=== PATIENT | male | born 1955 | race Caucasian/White ===

== ENCOUNTER 2017-01-02 23:45 | Inpatient (IN) | payer BC ==
--- NOTE | ~2017-01-02 | HP ---
History And Physical [place] [address] [place]. [address] NAME: MOSES RAMOS : 51 STATUS : ADM IN PAT#: [id number] AGE: 61 ADM/REG DATE : 01/03/17 MR#: [id number] REPORT SERV DATE: 01/03/17 DICTATED BY: IKE LEVIN DATE: 01/03/17 REPORT STATUS : Draft TRANSCRIBED BY: MODL DATE: 01/03/17 DATE OF ADMISSION: 01/03/2017 CHIEF COMPLAINT: A 61-year-old male with chronic atrial fibrillation and systolic congestive heart failure now presenting with symptomatic bradycardia. HISTORY OF PRESENTING ILLNESS: The patient's history was obtained through careful interview with the patient and girlfriend coupled with review of [facility] medical records. The patient was apparently asymptomatic and with no particular complaints. When during dinner on the night of admission, he states "I just didn't feel right." He felt lightheaded and developed some intermittent-pressure like discomfort in his chest diffusely about 6/10 to 7/10 severity, associated with mild shortness of breath. He never passed out or became unstable because of his lightheadedness, but at home he had a monitor and checked his pulse and it was in the 30s. He has a chronic nonproductive cough and "tickle in my throat". No fevers or chills. No nausea or vomiting. REVIEW OF SYSTEMS: Otherwise 14-point review of systems was obtained and was negative. PAST MEDICAL HISTORY: 1. Atrial fibrillation status post cardioversion. 2. COPD, placed on chronic nasal cannula oxygen but has never been a smoker. 3. Obstructive sleep apnea, on CPAP. 4. Hypertension. 5. Diabetes, under good control. 6. Systolic congestive heart failure, ejection fraction 45%. PAST SURGICAL HISTORY: 1. Left knee surgery. 2. Nasal surgery. ALLERGIES: NO KNOWN DRUG ALLERGIES. SOCIAL HISTORY: Never been a smoker. Drinks occasional alcohol. He lives with his girlfriend. He has two children. Quit marijuana. Used to work for [employer]. Lives in [place], [place]. FAMILY HISTORY: Sister with COPD. A strong family history of congestive heart failure and coronary artery disease. CURRENT MEDICATIONS: Include Eliquis 5 mg p.o. b.i.d., eye drops, aspirin 81 mg daily, [facility] History And Physical [place] [address] [facility] [place]. [address] NAME: MOSES RAMOS : 51 STATUS : ADM IN PAT#: [id number] AGE: 61 ADM/REG DATE : 01/03/17 MR#: [id number] REPORT SERV DATE: 01/03/17 DICTATED BY: IKE LEVIN DATE: 01/03/17 REPORT STATUS : Draft TRANSCRIBED BY: MODL DATE: 01/03/17 p.r.n., diltiazem extended release 120 mg daily, Tri-Cor 145 mg daily, flecainide 100 mg p.o. b.i.d., Lopid 600 mg p.o. b.i.d., lisinopril/hydrochlorothiazide 10/12.5 p.o. daily, losartan/hydrochlorothiazide 100/12.5 p.o. daily, loratadine 10 mg p.o. daily, metformin 500 mg p.o. b.i.d., metoprolol 100 mg p.o. b.i.d., Singulair 10 mg daily, Prilosec, Ultram 50 mg p.o. q.8 hours p.r.n. topical cream. PHYSICAL EXAMINATION: VITAL SIGNS: Temperature 97.0, pulse 30, blood pressure 118/57, respiratory rate 16, O2 saturation 98% on 2 L nasal cannula. GENERAL: A pleasant, cooperative male. He does not appear in distress at this time. HEENT: Pupils equal, round, and reactive to light. No conjunctival pallor. No scleral icterus. Nares are patent. Oropharynx is clear of obstruction. Moist mucous membranes. NECK: Trachea midline. No thyromegaly. LYMPH: No cervical lymphadenopathy. No supraclavicular lymphadenopathy. RESPIRATORY: Clear to auscultation at bases. No wheezes, rales, or rhonchi. Normal effort. CARDIOVASCULAR: Bradycardic regular. No murmurs, rubs, or gallops. No current extremity edema is appreciated. ABDOMEN: Soft, nontender, nondistended. Normal bowel sounds auscultated throughout. No hepatosplenomegaly. DERMATOLOGICAL: Warm and dry extremities. No pallor. No cyanosis. PSYCHIATRIC: Normal affect. Good mood. Alert and oriented x3. LABORATORY DATA: TSH elevated to 6.510. INR 1.5. White blood cell count 7.0, hemoglobin 11, hematocrit 33, platelets 305. Sodium 136, potassium 5.5, chloride 101, bicarb 25, BUN 30, creatinine 1.80 from baseline creatinine of 1.0, and glucose of 158. STUDIES: 1. Chest x-ray by my own evaluation shows no acute pulmonary process, but the patient does have cardiomegaly. 2. EKG by my own evaluation shows a junctional rhythm with bradycardia in the 30s. When I looks in the monitor, there does seem to be a clear P wave with first-degree AV block only, no second or third-degree block changes and bradycardic. ASSESSMENT AND PLAN: 1. Symptomatic bradycardia. Pulse in the 30s. Hold diltiazem. Hold beta timur. Hold flecainide. Obtain as [facility] Cardiology Consult. Admit to the [facility]. 2. Acute kidney injury. Hold multiple medications with hydrochlorothiazide in them and monitor closely. Place on IV fluids. 3. Abnormal TSH. Question of adding Synthroid. We will check full thyroid panel for now. 4. Severe obstructive sleep apnea, on CPAP. 5. Atrial fibrillation, on Eliquis. 6. Anemia. Check studies. History And Physical [address] [address] NAME: MOSES RAMOS : 51 STATUS : ADM IN [facility]#: [id number] AGE: 61 ADM/REG DATE : 01/03/17 MR#: [id number] REPORT SERV DATE: 01/03/17 DICTATED BY: IKE LEVIN DATE: 01/03/17 REPORT STATUS : Draft TRANSCRIBED BY: CHRISTOPHE DATE: 01/03/17 MIKEL/CHRISTOPHE Ike Levin M.D. / [id number] CC: MD Joss Kilpatrick M.D. Carlos Baleeiro, M.D. [facility] Cardiology
--- NOTE | ~2017-01-02 | DS ---
Discharge Summary [facility] [address] [place]. [address] NAME: MOSES RAMOS : 51 STATUS : DIS IN PAT#: [id number] AGE: 61 ADM/REG DATE : 01/03/17 MR#: [id number] REPORT SERV DATE: 01/05/17 DICTATED BY: DAVID HYDE II DATE: 01/05/17 REPORT STATUS : Draft TRANSCRIBED BY: MODL DATE: 01/05/17 ADMISSION DATE: 01/03/2017 DISCHARGE DATE: 01/05/2017 DISCHARGE DIAGNOSES: 1. Medication-induced bradycardia. 2. Acute on chronic systolic congestive heart failure. 3. Chronic atrial fibrillation. 4. Acute kidney injury. 5. Hypertension. 6. Diabetes mellitus, type 2. 7. Morbid obesity. CONSULTS: Wu Reid M.D. with Cardiology. BRIEF HISTORY OF PRESENT ILLNESS: The patient is a 61-year-old male with the above history who presented to [facility] due to symptomatic bradycardia. For detailed history and physical examination, please see Dr. Venkata Prince's note from 01/03/2017. HOSPITAL COURSE: After admission, the patient was observed in the IMCU. All of his blood pressure medicines were held. His creatinine was 1.8 on admission possibly due to him taking both Hyzaar and Prinzide as well as hypotension. He had an elevated BNP of 856, but did not have significant amount of clinical CHF. His creatinine subsequently trended down and currently 1.12. Cardiology evaluated him and Dr. 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 He has a history of typical atrial flutter and atrial fibrillation, which required cardioversion in the past. He had severe sleep apnea and his bradycardia was likely induced by being on flecainide, metoprolol, and Cardizem. Dr. Reid thought as he had a recurrence of his atrial fibrillation, he could consider radiofrequency ablation or a pacemaker in the future. Currently, the patient's insurance has not been accepted widely, but case management has found two cardiologists in his area, so the patient will be arranging followup with one of those sewing department supervisor. Otherwise, he is followed by Dr. Beyer and will need to see him in the next one to two weeks. Currently, he is doing well. His heart rate is actually up in the 80s to 90s, so we will restart his Cardizem, but continued to hold his beta-timur and flecainide per Cardiology. His blood pressure is doing well in the 120 systolic, and he is actually in the normal sinus rhythm at this current time. DISCHARGE MEDICATIONS: 1. Eliquis 5 mg p.o. b.i.d. 2. Aspirin 81 mg p.o. daily. 3. TriCor 145 mg p.o. daily. 4. Lopid 600 mg p.o. b.i.d. 5. Singulair 10 mg p.o. daily. 6. Tramadol 50 mg p.o. q.8 hours p.r.n. 7. Hyzaar 100/12.5 mg p.o. daily. 8. Cartia XT 120 mg p.o. daily. Discharge Summary [address] [address] NAME: MOSES RAMOS : 51 STATUS : DIS IN PAT#: [id number] AGE: 61 ADM/REG DATE : 01/03/17 MR#: [id number] REPORT SERV DATE: 01/05/17 DICTATED BY: DAVID HYDE II DATE: 01/05/17 REPORT STATUS : Draft TRANSCRIBED BY: CHRISTOPHE DATE: 01/05/17 9. Metformin 500 mg p.o. b.i.d. 10.Tums p.r.n. 11.Prilosec 20 mg p.o. daily p.r.n. 12.Claritin p.r.n. 13.Artificial tears p.r.n. 14.Triamcinolone p.r.n. DISCHARGE INSTRUCTIONS: The patient will follow up with Dr. Beyer in one to two weeks. Otherwise, he has been given information for local sewing department supervisor to get established with. RICARDA/CHRISTOPHE David Hyde II, MD / [id number] CC: MD Joss García II, M.D.
--- NOTE | ~2017-01-02 | CN ---
Consultation Report [facility] [address] [place]. [address] NAME: MOSES RAMOS : 51 STATUS : ADM IN [facility]#: [id number] AGE: 61 ADM/REG DATE : 01/03/17 MR#: [id number] REPORT SERV DATE: 01/03/17 DICTATED BY: ARNIE HERNANDEZ DATE: 01/03/17 REPORT STATUS : Draft TRANSCRIBED BY: MODL DATE: 01/03/17 CARDIOLOGY CONSULTATION DATE OF CONSULTATION: 01/03/2017 REASON FOR CONSULTATION: Regarding symptomatic bradycardia. HISTORY OF PRESENT ILLNESS: Mr. Ramos is a 61-year-old gentleman with known history of atrial dysrhythmias that has included atrial fibrillation and atypical atrial flutter. He has severe sleep apnea. He presented to the hospital with complaints of weakness, fatigue, and some chest discomfort. He was found to be in sinus bradycardia with heart rates in the 40s. There were no prolonged pauses or more severe bradycardia noted. The patient takes calcium channel blockers, beta blockers, and flecainide for his atrial dysrhythmia. These were all held. His laboratory values were notable for a creatinine of 1.8 where his baseline creatinine is 1.0, electrolytes were all within normal limits. His heart rates were coming up into the 50s this morning, he is feeling better. His chest pain has resolved. PAST MEDICAL HISTORY: Notable for: 1. COPD. 2. Severe sleep apnea. 3. History of atrial dysrhythmias that included atrial fibrillation and atypical atrial flutter, status post cardioversion. The patient receives flecainide as well as beta blockers and calcium channel blockers. 4. Hypertension. 5. Diabetes. 6. Systolic heart failure, ejection fraction 45%. PAST SURGICAL HISTORY: Left knee surgery. FAMILY HISTORY: Negative for premature coronary artery disease. SOCIAL HISTORY: Has never been a smoker. Occasional alcohol. REVIEW OF SYSTEMS: As noted above. All other systems reviewed and negative. PHYSICAL EXAMINATION: VITAL SIGNS: Blood pressure of 120/70, pulse of 52, respirations 16. GENERAL: Well developed, well nourished. HEENT: No icterus. Good dentition. NECK: Supple. No masses or thyromegaly LUNGS: Breathing comfortably. No rales or wheezes. COR: Normal S1, S2. No S3 or S4. No murmurs, clicks, rubs. No JVD Consultation Report [facility] [address] [place]. [address] NAME: MOSES RAMOS : 51 STATUS : ADM IN PAT#: [id number] AGE: 61 ADM/REG DATE : 01/03/17 MR#: [id number] REPORT SERV DATE: 01/03/17 DICTATED BY: ARNIE HERNANDEZ DATE: 01/03/17 REPORT STATUS : Draft TRANSCRIBED BY: MODL DATE: 01/03/17 ABD: Soft, nondistended, nontender, no hepatosplenomegaly. EXT: No clubbing, cyanosis or edema. Peripheral pulses 2+/=bilaterally. SKIN: Warm and dry. No visible lesions. MS: Chest wall without deformity, no obvious clavicular fractures. NEURO/PSYCH: Oriented X3. No anxiety or depression. DIAGNOSTIC STUDIES: EKG on admission: Sinus bradycardia, heart rate of 40 beats per minute. Normal intervals. No evidence for ischemia, infarction, or chamber hypertrophy. IMPRESSION: A gentleman with, what appears to be, level of tachy-pamella syndrome. He has had a history of a typical atrial flutter and atrial fibrillation that has required cardioversion in the past. He has severe sleep apnea. Currently, he is taking flecainide, beta blockers, calcium channel blockers, and takes Eliquis for CVA prophylaxis. I would recommend holding all of these medications for now. If he has recurrence of atrial fibrillation, could consider radiofrequency ablation as a potential treatment option because of his underlying bradycardia. Could consider pacemaker to allow for use of other antiarrhythmic agents. We will hold his Eliquis for now until decision is made as far as any other procedures including pacemaker. JAZZY/CHRISTOPHE Arnie Hernandez M.D. / [id number]
[~2017-01-02 23:45] MED LIST: BACTRONASA NAS; C5 PO; CARD120 PO; ELIQUIS 5 MG TAB5 MG PO; FLECAINIDE100 MG PO; GLUCPH PO; HALF81 PO; HYZAAR1 TAB PO; PRILO PO; SYMBICORT 160/41 INH INH; TOPXL50 PO; TRICOR145 PO
[2017-01-03 00:59] LABS: BASOPHILS 0.9 %; BASOPHILS ABSOLUTE 0.06 10/3/uL (0.0-0.16); EOSINOPHILS ABSOLUTE 0.35 10/3/uL (0.0-0.53); ER CBC TAT 0 Hrs 07 Mins; HEMOGLOBIN 10.7 g/dL (13.6-17.8); IMMATURE GRANULOCYTES 0.6 %; IMMATURE GRANULOCYTES ABSOLUTE 0.04 10/3/uL (0.0-0.11); LYMPHOCYTES 22.6 %; LYMPHOCYTES ABSOLUTE 1.59 10/3/uL (0.67-4.30); MEAN CORPUSCULAR HEMOGLOB 27.7 pg (26.0-34.0); MEAN CORPUSCULAR VOLUME 86.5 fL (80-100); MEAN PLATELET VOLUME 8.8 fL (9.2-13.0); MONOCYTES 9.7 %; MONOCYTES ABSOLUTE 0.68 10/3/uL (0.21-1.20); NEUTROPHILS 61.2 %; NEUTROPHILS ABSOLUTE 4.31 10/3/uL (2.02-8.40); PLATELET COUNT 305 10/3/uL (150-400); RBC DISTRIBUTION WIDTH 18.1 % (12.0-16.0)
[2017-01-03 01:00] LABS: HEMATOCRIT 33.4 % (40.0-51.0); MANUAL DIFF NO %; RED CELL COUNT 3.86 10/6/uL (4.7-6.1)
[2017-01-03 01:07] LABS: INTERNATIONAL NORMAL RATI 1.5 UNITS (-); PROTIME (NOT ORD) 17.7 SEC (12.0-14.5)
[2017-01-03 01:08] LABS: PARTIAL THROMBO TIME 50.6 SEC (22.5-37.2)
[2017-01-03 01:26] LABS: CALCIUM, SERUM 8.8 MG/DL (8.5-10.4); CHLORIDE, SERUM 101 MMOL/L (96-112); POTASSIUM, SERUM 5.5 MMOL/L (3.5-5.3); SODIUM, SERUM 136 MMOL/L (135-148); TROPONIN I <0.02 NG/ML (<0.05)
[2017-01-03 01:27] LABS: BUN (BLOOD UREA NITROGEN) 30 MG/DL (6-23); CHEST PAIN PROFILE TAT 0 Hrs 34 Mins; CO2 (CARBON DIOXIDE) 25 MMOL/L (24-34); GFR AFRICAN AMERICAN 45 ML/MIN (>=60); GFR NON AFRICAN AMERICAN 39 ML/MIN (>=60); GLUCOSE, SERUM 158 MG/DL (60-99)
[2017-01-03] MEDS ORDERED: SINGULAIR1 PO (02:11)
[2017-01-03] MEDS ORDERED: LOPID6 PO (02:11)
[2017-01-03] MEDS ORDERED: FLECAINIDE100 MG PO (02:12)
[2017-01-03] MEDS ORDERED: HYZAAR1 TAB PO (02:12)
[2017-01-03] MEDS ORDERED: ULTRAM50 PO (02:12)
[2017-01-03] MEDS ORDERED: PRINZIDE1 TAB PO (02:13)
[2017-01-03] MEDS ORDERED: ELIQUIS 5 MG TAB5 MG PO (02:13)
[2017-01-03] MEDS ORDERED: LOP100 PO (02:13)
[2017-01-03] MEDS ORDERED: CARTIA XT120 MG/24 PO (02:14)
[2017-01-03] MEDS ORDERED: TRICOR145 PO (02:14)
[2017-01-03] MEDS ORDERED: GLUCPH PO (02:15)
[2017-01-03] MEDS ORDERED: PRILOSEC OTC20 MG PO (02:16)
[2017-01-03] MEDS ORDERED: TUMSROLL PO (02:16)
[2017-01-03] MEDS ORDERED: ASAB PO (02:16)
[2017-01-03] MEDS ORDERED: TEARS PLUS OPH (02:17)
[2017-01-03] MEDS ORDERED: CLARIT10 PO (02:17)
[2017-01-03] MEDS ORDERED: TRIAMCINOLONE TOP (02:22)
[2017-01-03 09:27] LABS: BASOPHILS 0.5 %; BASOPHILS ABSOLUTE 0.03 10/3/uL (0.0-0.16); EOSINOPHILS 5.6 %; EOSINOPHILS ABSOLUTE 0.33 10/3/uL (0.0-0.53); HEMATOCRIT 32.3 % (40.0-51.0); HEMOGLOBIN 10.3 g/dL (13.6-17.8); IMMATURE GRANULOCYTES 0.3 %; IMMATURE GRANULOCYTES ABSOLUTE 0.02 10/3/uL (0.0-0.11); LYMPHOCYTES 27.5 %; LYMPHOCYTES ABSOLUTE 1.61 10/3/uL (0.67-4.30); MEAN CORPUS HGB CONC 31.9 g/dL (32.0-36.0); MEAN CORPUSCULAR HEMOGLOB 27.2 pg (26.0-34.0); MEAN CORPUSCULAR VOLUME 85.4 fL (80-100); MEAN PLATELET VOLUME 8.4 fL (9.2-13.0); MONOCYTES 7.7 %; MONOCYTES ABSOLUTE 0.45 10/3/uL (0.21-1.20); NEUTROPHILS 58.4 %; NEUTROPHILS ABSOLUTE 3.41 10/3/uL (2.02-8.40); PLATELET COUNT 270 10/3/uL (150-400); RBC DISTRIBUTION WIDTH 18.3 % (12.0-16.0); RED CELL COUNT 3.78 10/6/uL (4.7-6.1); WHITE BLOOD CELLS 5.9 10/3/uL (4.5-10.5)
[2017-01-03 09:30] LABS: MANUAL DIFF NO %
[2017-01-03 09:40] LABS: INTERNATIONAL NORMAL RATI 1.4 UNITS (-); PARTIAL THROMBO TIME 45.6 SEC (22.5-37.2); PROTIME (NOT ORD) 17.3 SEC (12.0-14.5)
[2017-01-03 10:05] LABS: ALBUMIN 3.7 G/DL (3.5-5.0); BUN (BLOOD UREA NITROGEN) 29 MG/DL (6-23); CALCIUM, SERUM 8.7 MG/DL (8.5-10.4); CHLORIDE, SERUM 104 MMOL/L (96-112); CO2 (CARBON DIOXIDE) 23 MMOL/L (24-34); CREATININE 1.45 MG/DL (0.70-1.30); FERRITIN 387 NG/ML (26-388); FREE T4 0.85 NG/DL (0.76-1.46); GFR AFRICAN AMERICAN 59 ML/MIN (>=60); GFR NON AFRICAN AMERICAN 51 ML/MIN (>=60); GLOBULIN 3.8 G/DL (2.5-4.1); GLUCOSE, SERUM 144 MG/DL (60-99); IRON BINDING CAPACITY 421 MCG/DL (250-450); IRON, SERUM 130 MCG/DL (35-150); SGOT(AST) 28 U/L (5-40); SGPT(ALT) 35 U/L (5-65); SODIUM, SERUM 138 MMOL/L (135-148); TOTAL PROTEIN 7.5 G/DL (6.0-8.5); TROPONIN I <0.02 NG/ML (<0.05)
[2017-01-03 10:06] LABS: ALKALINE PHOSPHATASE 32 U/L (45-117); FOLATE 14.9 NG/ML (>5.2); TOTAL BILIRUBIN 0.2 MG/DL (0-1.2)
[2017-01-04 05:30] LABS: BASOPHILS ABSOLUTE 0.05 10/3/uL (0.0-0.16); EOSINOPHILS 7.7 %; EOSINOPHILS ABSOLUTE 0.39 10/3/uL (0.0-0.53); HEMATOCRIT 34.9 % (40.0-51.0); HEMOGLOBIN 10.8 g/dL (13.6-17.8); IMMATURE GRANULOCYTES 0.8 %; IMMATURE GRANULOCYTES ABSOLUTE 0.04 10/3/uL (0.0-0.11); LYMPHOCYTES ABSOLUTE 1.32 10/3/uL (0.67-4.30); MEAN CORPUS HGB CONC 30.9 g/dL (32.0-36.0); MEAN CORPUSCULAR HEMOGLOB 26.9 pg (26.0-34.0); MEAN PLATELET VOLUME 8.9 fL (9.2-13.0); MONOCYTES ABSOLUTE 0.71 10/3/uL (0.21-1.20); NEUTROPHILS 50.5 %; NEUTROPHILS ABSOLUTE 2.57 10/3/uL (2.02-8.40); PLATELET COUNT 294 10/3/uL (150-400); RBC DISTRIBUTION WIDTH 18.1 % (12.0-16.0); RED CELL COUNT 4.01 10/6/uL (4.7-6.1); WHITE BLOOD CELLS 5.1 10/3/uL (4.5-10.5)
[2017-01-04 05:36] LABS: MANUAL DIFF NO %
[2017-01-04 05:39] LABS: BUN (BLOOD UREA NITROGEN) 20 MG/DL (6-23); CHLORIDE, SERUM 104 MMOL/L (96-112); CO2 (CARBON DIOXIDE) 27 MMOL/L (24-34); CREATININE 1.09 MG/DL (0.70-1.30); GFR AFRICAN AMERICAN 83 ML/MIN (>=60); GFR NON AFRICAN AMERICAN 72 ML/MIN (>=60); GLUCOSE, SERUM 91 MG/DL (60-99); POTASSIUM, SERUM 4.7 MMOL/L (3.5-5.3); SODIUM, SERUM 140 MMOL/L (135-148)
[2017-01-05 04:51] LABS: BUN (BLOOD UREA NITROGEN) 21 MG/DL (6-23); CALCIUM, SERUM 9.6 MG/DL (8.5-10.4); CHLORIDE, SERUM 101 MMOL/L (96-112); CO2 (CARBON DIOXIDE) 26 MMOL/L (24-34); CREATININE 1.12 MG/DL (0.70-1.30); GFR AFRICAN AMERICAN 81 ML/MIN (>=60); GFR NON AFRICAN AMERICAN 70 ML/MIN (>=60); GLUCOSE, SERUM 96 MG/DL (60-99); SODIUM, SERUM 137 MMOL/L (135-148)
[2017-01-05 04:52] LABS: POTASSIUM, SERUM 4.9 MMOL/L (3.5-5.3)
== END 2017-01-05 18:35 | disposition home or self-care (01) | DRG 308 ==
LOC: ER 23:45 → IMCU 01-03 02:21 → 6NO 01-04 00:08
PROVIDERS: Hospitalist; Internal Medicine; Specialist
DX: R00.1 Bradycardia, unspecified (principal); I50.23 Acute on chronic systolic (congestive) heart failure; N17.9 Acute kidney failure, unspecified; Z99.81 Dependence on supplemental oxygen; E87.5 Hyperkalemia; E11.9 Type 2 diabetes mellitus without complications; D64.9 Anemia, unspecified; I48.2 Chronic atrial fibrillation; J44.9 Chronic obstructive pulmonary disease, unspecified; G47.33 Obstructive sleep apnea (adult) (pediatric); Z79.02 Long term (current) use of antithrombotics/antiplatelets; I11.0 Hypertensive heart disease with heart failure; E66.01 Morbid (severe) obesity due to excess calories; T50.2X5A Adverse effect of carbonic-anhydrase inhibitors, benzothiadiazides and other diuretics, initial encounter; T46.4X5A Adverse effect of angiotensin-converting-enzyme inhibitors, initial encounter; Z68.35 Body mass index [BMI] 35.0-35.9, adult
CPT/HCPCS: 71010; 80048; 80053; 82607; 82728; 82746; 82962; 83540; 83550; 83735; 83880; 84439; 84443; 84481; 84484; 85025; 85610; 85730; 87641; 93005; 96374; 96375; 99285; A9270-GY; J0610